=== PATIENT | male | born 1930 | race Caucasian/White ===

== ENCOUNTER → 2017-12-02 | Outpatient (CLI) | payer OTHER ==
[~2017-12-02] MED LIST: ALBU90OI INH; ALBU90OI6 INH; ALLEGRA ALLERG180 M1 PO; ATOR10 PO; BUDE6HFA; CIPR500; DOCU100 PO; Enablex7.5 MG; FURO40 PO; FURO80 PO; GABA100 PO; HYDACE7.5; LANS30EC PO; LEVFLO500 PO; LEVSOD50 PO; LIDO5TO TOP; LIDO5TP TOP; LOSA50; LUPRON; MEGE40T; METO25ER PO; MILLIPRED DP5 MG PO; NEBI5 PO; NYSTRI30T TOP; OXYC5; POTCHL20ER PO; Prednisone20 MG PO; SIMV20; SULTRISS PO; TAMS.4ER PO; TOLT4; VIACTIV SOFT C1 EAC1 PO; XARELTO15 MG PO; ZOLP5 PO
== END | disposition home or self-care (01) ==
LOC: PLD 07:35 → LAB SHORT 07:35
DX: L72.0 Epidermal cyst (principal)
CPT/HCPCS: 88304